=== PATIENT | female | born 1990 ===

== ENCOUNTER 2019-07-06 00:15 | Inpatient (IN) | payer OTHER ==
[2019-07-06] MEDS ORDERED: Sodium Chloride 0.9% 2.5 ML Syringe FLUSH PRN (01:31)
[2019-07-06] MEDS ORDERED: Water For Irrigation,Sterile 1,000 ML Container IRR PRN (01:31)
[2019-07-06] MEDS ORDERED: Nalbuphine 10 MG/1 ML Vial IVPUSH PRN (01:31)
[2019-07-06] MEDS ORDERED: Misoprostol 200 MCG Tab PO PRN (01:31)
[2019-07-06] MEDS ORDERED: Sodium Chloride 0.9% 10 ML SDV IV PRN (01:31)
[2019-07-06] MEDS ORDERED: Carboprost Tromethamine 250 MCG/1 ML Amp IM PRN (01:31)
[2019-07-06] MEDS ORDERED: Butorphanol 1 MG/ML SDV IVPUSH PRN (01:31)
[2019-07-06] MEDS ORDERED: Methylergonovine 0.2 MG/1 ML Amp IM PRN (01:31)
[2019-07-06] MEDS ORDERED: Lidocaine 1% 50 ML MDV INJECT PRN (01:31)
[2019-07-06] MEDS ORDERED: Sodium Chloride 0.9% 10 ML Syringe FLUSH PRN (01:31)
[2019-07-06] MEDS ORDERED: Tranexamic Acid 1,000 MG in Sodium Chloride 0.9% 100 ML IV PRN (01:31)
[2019-07-06] MEDS ORDERED: Terbutaline 1 MG/ML SDV SUBCUT PRN (01:31)
[2019-07-06] MEDS ORDERED: Oxytocin/0.9 % Sodium Chloride 30 UNIT/500 ML BAG IV SCH ×2 (01:45)
[2019-07-06] MEDS ORDERED: Lactated Ringers 1,000 ML IV SCH (01:45)
[2019-07-06] MEDS ORDERED: Bupivicaine/fentaNYL/NS 250 ML ONE (05:45)
--- NOTE | 2019-07-06 06:26 | PCM.PREANE ---
Preanesthetic Assessment - Procedure Proposed Procedure: Continuous Labor Epidural - Anesthesia/Transfusion/Family Hx Anesthesia History: Prior Anesthesia Without Reaction - Review of Systems General: No Symptoms Pulmonary: No Symptoms Cardiovascular: No Symptoms Gastrointestinal: No Symptoms Neurological: No Symptoms Other: Reports: None - Physical Assessment Height: 5 ft 9 in Weight: 125.2 kg ASA Class: 2 Mental Status: Alert & Oriented x3 Airway Class: Mallampati = 2 Dentition: Reports: Normal Dentition Thyro-Mental Finger Breadths: 3 Mouth Opening Finger Breadths: 3 ROM/Head Extension: Full Lungs: Clear to Auscultation, Normal Respiratory Effort Cardiovascular: Regular Rate, Regular Rhythm - Lab Values: Laboratory Last Values WBC 11.42 K/uL (4.0-11.0) H 07/06/19 01:45 RBC 4.41 M/uL (4.30-5.90) 07/06/19 01:45 Hgb 11.9 g/dL (12.0-16.0) L 07/06/19 01:45 Hct 37.8 % (36.0-46.0) 07/06/19 01:45 MCV 85.7 fL (80.0-98.0) 07/06/19 01:45 MCH 27.0 pg (27.0-32.0) 07/06/19 01:45 MCHC 31.5 g/dL (31.0-37.0) 07/06/19 01:45 RDW Std Deviation 41.0 fl (28.0-62.0) 07/06/19 01:45 RDW Coeff of Ramiro 13 % (11.0-15.0) 07/06/19 01:45 Plt Count 252 K/uL (150-400) 07/06/19 01:45 MPV 11.70 fL (7.40-12.00) 07/06/19 01:45 Nucleated RBC % 0.0 /100WBC 07/06/19 01:45 Nucleated RBCs # 0 K/uL 07/06/19 01:45 Blood Type A POSITIVE 07/06/19 01:45 Antibody Screen NEGATIVE 07/06/19 01:45 - Allergies Allergies/Adverse Reactions: Allergies Allergy/AdvReac Type Severity Reaction Status Date / Time strawberry Allergy Hives Verified 02/27/16 19:00 - Anesthesia Plan Free Text/Narrative:: Continuous Labor Epidural - Acknowledgements Anesthesia Type Planned: Epidural Pt an Appropriate Candidate for the Planned Anesthesia: Yes Alternatives and Risks of Anesthesia Discussed w Pt/Guardian: Yes Pt/Guardian Understands and Agrees with Anesthesia Plan: Yes PreAnesthesia Questionnaire HEENT History: Reports: None Other HEENT History: Wears glasses Cardiovascular History: Reports: None Respiratory History: Reports: None Gastrointestinal History: Reports: None Genitourinary History: Reports: None PACKAGING ENGINEER History: Reports: : 1 Para: 0 LMP (Approximate): Musculoskeletal History: Reports: None Neurological History: Reports: None Psychiatric History: Reports: Anxiety Endocrine/Metabolic History: Reports: None Hematologic History: Reports: None Immunologic History: Reports: None Oncologic (Cancer) History: Reports: None Dermatologic History: Reports: None - Infectious Disease History Infectious Disease History: Reports: Chicken Pox - Past Surgical History HEENT Surgical History: Reports: Adenoidectomy, Oral Surgery, Tonsillectomy Other HEENT Surgeries/Procedures: [place] Teeth - Past Imaging History Past Imaging History: Reports: None - History Comment History Comment: Patient taking vitamins. No other medications. - SUBSTANCE USE Smoking Status *Q: Never Smoker - HOME MEDS Home Medications: Home Meds . [No Known Home Meds] 02/27/16 [History] - CURRENT (IN HOUSE) MEDS Current Meds: Current Medications Butorphanol Tartrate (Stadol) 1 mg IVPUSH Q1H PRN PRN Reason: Pain Last Admin: 07/06/19 04:23 Dose: 1 mg Carboprost Tromethamine (Hemabate Ds) 250 mcg IM ASDIRECTED PRN PRN Reason: Post Hemorrhage Lactated Ringer's (Ringers, Lactated) 1,000 mls @ 150 mls/hr IV ASDIRECTED ZELALEM Last Admin: 07/06/19 02:05 Dose: 150 mls/hr Oxytocin/Sodium Chloride (Oxytocin 30 Unit/500 Ml-Ns) 30 unit in 500 mls @ 999 mls/hr IV TITRATE ZELALEM Oxytocin/Sodium Chloride (Oxytocin 30 Unit/500 Ml-Ns) 30 unit in 500 mls @ 2 mls/hr IV TITRATE ZELALEM; Protocol Last Titration: 07/06/19 03:20 Dose: 6 mls/hr Tranexamic Acid 1,000 mg/ (Sodium Chloride) 110 mls @ 660 mls/hr IV ONETIME PRN PRN Reason: Bleeding Lidocaine HCl (Xylocaine 1%) 50 ml INJECT ONETIME PRN PRN Reason: Laceration repair Methylergonovine Maleate (Methergine) 0.2 mg IM ASDIRECTED PRN PRN Reason: Post Hemorrhage Misoprostol (Cytotec) 200 mcg PO ONETIME PRN PRN Reason: Post Hemorrhage Nalbuphine HCl (Nubain) 10 mg IVPUSH Q1H PRN PRN Reason: Pain (severe 7-10) Sodium Chloride (Saline Flush) 10 ml FLUSH ASDIRECTED PRN PRN Reason: Keep Vein Open Sodium Chloride (Saline Flush) 2.5 ml FLUSH ASDIRECTED PRN PRN Reason: Keep Vein Open Sodium Chloride (Normal Saline) 10 ml IV ASDIRECTED PRN PRN Reason: IV Use Sterile Water (Sterile Water For Irrigation) 1,000 ml IRR ASDIRECTED PRN PRN Reason: delivery Terbutaline Sulfate (Brethine) 0.25 mg SUBCUT ASDIRECTED PRN PRN Reason: Tacysystole Discontinued Medications Fentanyl/Bupivacaine HCl (Fentanyl/Bupivacaine/Ns 2 Mcg-0.125% 250 Ml) Confirm Administered Dose 250 mls @ as directed .ROUTE .[facility] Stop: 07/06/19 05:46
[2019-07-06] MEDS ORDERED: Bisacodyl 10 MG Supp RECTAL PRN (11:11)
[2019-07-06] MEDS ORDERED: Aluminum Hydroxide/Magnesium Hydroxide/Simethicone Susp 30 ML Cup PO PRN (11:11)
[2019-07-06] MEDS ORDERED: Acetaminophen 500 MG Tab PO PRN (11:11)
[2019-07-06] MEDS ORDERED: Simethicone 80 MG Tab.Chew PO PRN (11:11)
[2019-07-06] MEDS ORDERED: Lanolin 100% Cream 7 GM Tube TOP PRN (11:11)
[2019-07-06] MEDS ORDERED: oxyCODONE 5 MG Tab PO PRN (11:11)
[2019-07-06] MEDS ORDERED: Benzocaine/Menthol 20%-0.5% Spray 78 GM Cannister TOP PRN (11:11)
[2019-07-06] MEDS ORDERED: Docusate Sodium 100 MG Cap PO PRN (11:11)
[2019-07-06] MEDS ORDERED: Ibuprofen 400 MG Tab PO PRN (11:11)
--- NOTE | 2019-07-06 11:19 | PCM.OPNOTE ---
- General Post-Op/Procedure Note Date of Surgery/Procedure: 07/06/19 Operative Procedure(s): /2nd MLL repaired Findings: Viable female APGARs 9, 9 weight pending. Spontaneous delivery intact placenta with 3V cord Pre Op Diagnosis: 40/2 week IUP. Induction of labor-elective Post-Op Diagnosis: Same Anesthesia Technique: Epidural Primary Surgeon: Abby Toledo EBL in mLs: 300 Complications: none known Condition: Good Free Text/Narrative:: Dictation [id number]
[2019-07-06] MEDS: Witch Hazel Medicated Pads 40/Jar TOP PRN (11:31)
[2019-07-06] MEDS: Ibuprofen 800 MG Tab PO PRN ×2 (11:32→22:13)
[2019-07-06] MEDS: Acetaminophen 500 MG Tab PO PRN (22:13)
[2019-07-07] MEDS: Ibuprofen 800 MG Tab PO PRN (06:03)
[2019-07-07] MEDS: Acetaminophen 500 MG Tab PO PRN (06:03)
[2019-07-07 09:11] VITALS: BP 103/73; PULSE 84
--- NOTE | 2019-07-07 11:55 | PCM.PNPP ---
- General Info Date of Service: 07/07/19 Functional Status: Reports: Pain Controlled, Tolerating Diet, Ambulating, Urinating - Review of Systems General: Denies: Fever, Weakness, Fatigue Pulmonary: Denies: Shortness of Breath Cardiovascular: Denies: Chest Pain, Palpitations, Lightheadedness Gastrointestinal: Reports: No Symptoms Genitourinary: Reports: No Symptoms Musculoskeletal: Reports: No Symptoms Skin: Reports: No Symptoms Neurological: Reports: No Symptoms Psychiatric: Reports: No Symptoms - General Info Date of Service: 07/07/19 - Patient Data Vital Signs - Most Recent: Last Vital Signs Temp 36.2 C 07/07/19 08:00 Pulse 84 07/07/19 08:00 Resp 18 07/07/19 08:00 BP 103/73 07/07/19 08:00 Pulse Ox 96 07/07/19 08:00 Weight - Most Recent: 125.2 kg Lab Results - Last 24 Hours: Laboratory Results - last 24 hr 07/07/19 Range/Units 06:48 Hgb 11.0 L (12.0-16.0) g/dL Hct 34.9 L (36.0-46.0) % Med Orders - Current: Current Medications Acetaminophen (Tylenol Extra Strength) 500 mg PO Q4H PRN PRN Reason: Pain Acetaminophen (Tylenol Extra Strength) 1,000 mg PO Q4H PRN PRN Reason: Pain Last Admin: 07/07/19 06:03 Dose: 1,000 mg Al Hydroxide/Mg Hydroxide (Mag-Al Plus) 30 ml PO Q8H PRN PRN Reason: Heartburn Benzocaine/Menthol (Dermoplast Pain Relief 20%-0.5% [place]ck[place]) 78 gm TOP ASDIRECTED PRN PRN Reason: Perineal Comfort Measure Last Admin: 07/06/19 11:30 Dose: 1 can Bisacodyl (Dulcolax) 10 mg RECTAL ONETIME PRN PRN Reason: Constipation Carboprost Tromethamine (Hemabate Ds) 250 mcg IM ASDIRECTED PRN PRN Reason: Post Hemorrhage Docusate Sodium (Colace) 100 mg PO BID PRN PRN Reason: Constipation Last Admin: 07/06/19 11:31 Dose: 100 mg Emollient Ointment (Lansinoh Hpa) 0 gm TOP ASDIRECTED PRN PRN Reason: Sore Nipples Last Admin: 07/06/19 11:31 Dose: 7 gram Lactated Ringer's (Ringers, Lactated) 1,000 mls @ 150 mls/hr IV ASDIRECTED ZELALEM Last Admin: 07/06/19 02:05 Dose: 150 mls/hr Oxytocin/Sodium Chloride (Oxytocin 30 Unit/500 Ml-Ns) 30 unit in 500 mls @ 999 mls/hr IV TITRATE ZELAL[place] Oxytocin/Sodium Chloride (Oxytocin 30 Unit/500 Ml-Ns) 30 unit in 500 mls @ 2 mls/hr IV TITRATE ZELALEM; Protocol Last Titration: 07/06/19 09:53 Dose: 6 mls/hr Tranexamic Acid 1,000 mg/ (Sodium Chloride) 110 mls @ 660 mls/hr IV ONETIME PRN PRN Reason: Bleeding Ibuprofen (Motrin) 400 mg PO Q4H PRN PRN Reason: Pain Ibuprofen (Motrin) 800 mg PO Q6H PRN PRN Reason: Pain Last Admin: 07/07/19 06:03 Dose: 800 mg Methylergonovine Maleate (Methergine) 0.2 mg IM ASDIRECTED PRN PRN Reason: Post Hemorrhage Oxycodone HCl (Oxycodone) 5 mg PO Q2H PRN PRN Reason: Pain Simethicone (Simethicone) 80 mg PO Q4H PRN PRN Reason: Gas Sodium Chloride (Saline Flush) 10 ml FLUSH ASDIRECTED PRN PRN Reason: Keep Vein Open Sodium Chloride (Saline Flush) 2.5 ml FLUSH ASDIRECTED PRN PRN Reason: Keep Vein Open Sodium Chloride (Normal Saline) 10 ml IV ASDIRECTED PRN PRN Reason: IV Use Sterile Water (Sterile Water For Irrigation) 1,000 ml IRR ASDIRECTED PRN PRN Reason: delivery Witch Mar (Tucks) 1 pad TOP ASDIRECTED PRN PRN Reason: comfort care Last Admin: 07/06/19 11:31 Dose: 1 tub Discontinued Medications Butorphanol Tartrate (Stadol) 1 mg IVPUSH Q1H PRN PRN Reason: Pain Last Admin: 07/06/19 04:23 Dose: 1 mg Fentanyl/Bupivacaine HCl (Fentanyl/Bupivacaine/Ns 2 Mcg-0.125% 250 Ml) Confirm Administered Dose 250 mls @ as directed .ROUTE .[facility]-MED ONE Stop: 07/06/19 05:46 Lidocaine HCl (Xylocaine 1%) 50 ml INJECT ONETIME PRN PRN Reason: Laceration repair Misoprostol (Cytotec) 200 mcg PO ONETIME PRN PRN Reason: Post Hemorrhage Nalbuphine HCl (Nubain) 10 mg IVPUSH Q1H PRN PRN Reason: Pain (severe 7-10) Terbutaline Sulfate (Brethine) 0.25 mg SUBCUT ASDIRECTED PRN PRN Reason: Tacysystole - Infant Interaction Support Person: - Recovery Exam Fundal Tone: Firm Fundal Level: 1 Fingerbreadths Below Umbilicus Fundal Placement: Midline Lochia Amount: Scant, Small Lochia Color: Rubra/Red Perineum Description: Intact, Minimal Bruising/Swelling Bladder Status: Voiding Urinary Elimination: Voided - Exam General: Alert, Oriented Lungs: Normal Respiratory Effort Cardiovascular: Regular Rate, Regular Rhythm GI/Abdominal Exam: Normal Bowel Sounds, Soft Extremities: Pedal Edema (trace). No: Alexus's Sign Skin: Warm, Dry, Intact Wound/Incisions: Healing Well Neurological: No New Focal Deficit Psy/Mental Status: Alert, Normal Affect, Normal Mood - Problem List & Annotations (1) Vaginal delivery SNOMED Code(s): 820293670 Code(s): O80 - ENCOUNTER FOR FULL-TERM UNCOMPLICATED DELIVERY Status: Acute Current Visit: Yes - Problem List Review Problem List Initiated/Reviewed/Updated: Yes - My Orders Last 24 Hours: My Active Orders 07/06/19 11:11 Patient Status [ADT] Routine May Shower [RC] ASDIRECTED Notify Provider Vital Signs [RC] ASDIRECTED Up ad Shital [RC] ASDIRECTED Vital Signs [RC] PER UNIT ROUTINE Acetaminophen [Tylenol Extra Strength] 1,000 mg PO Q4H PRN Acetaminophen [Tylenol Extra Strength] 500 mg PO Q4H PRN Alum Hydrox/Mag Hydrox/Simeth [Mag-Al Plus] 30 ml PO Q8H PRN Benzocaine/Menthol [Dermoplast Pain Relief 20%-0.5% [place]ley] 78 gm TOP ASDIRECTED PRN Docusate Sodium [Colace] 100 mg PO BID PRN Ibuprofen [Motrin] 400 mg PO Q4H PRN Ibuprofen [Motrin] 800 mg PO Q6H PRN Lanolin [Lansinoh HPA] See Dose Instructions TOP ASDIRECTED PRN Simethicone 80 mg PO Q4H PRN bisacodyL [Dulcolax] 10 mg RECTAL ONETIME PRN oxyCODONE 5 mg PO Q2H PRN witch Mar [Tucks] 1 pad TOP ASDIRECTED PRN Assess Lochia [WOMSER] Per Unit Routine Assess Uterine Involution [WOMSER] Per Unit Routine Peripheral IV Discontinue [OM.PC] Routine 07/06/19 11:12 Ice Therapy [OM.PC] Per Unit Routine Perineal Care [OM.PC] Per Unit Routine Sitz Bath [OM.PC] Per Unit Routine 07/06/19 Lunch Regular Diet [DIET] 07/07/19 11:53 Ready for Discharge [RC] PER UNIT ROUTINE - Assessment Assessment:: PPD 1 status post /2nd MLL repaired - Plan Plan:: VS and labs are reassuring. Patient would like to go home today. Discharge instructions reviewed. Follow up at [facility] 6 weeks. Infetion and bleeding warnings reviewed. Discharge to home today.
--- NOTE | 2019-07-07 12:02 | PCM48HPAN ---
Post Anesthesia Note - EVALUATION WITHIN 48HRS OF ANESTHETIC Vital Signs in Normal Range: Yes Patient Participated in Evaluation: Yes Respiratory Function Stable: Yes Airway Patent: Yes Cardiovascular Function Stable: Yes Hydration Status Stable: Yes Pain Control Satisfactory: Yes Nausea and Vomiting Control Satisfactory: Yes Mental Status Recovered: Yes Vital Signs: Last Vital Signs Temp 36.2 C 07/07/19 08:00 Pulse 84 07/07/19 08:00 Resp 18 07/07/19 08:00 BP 103/73 07/07/19 08:00 Pulse Ox 96 07/07/19 08:00 - COMMENTS/OBSERVATIONS Free Text/Narrative:: Patient sitting in bed holding baby doing well. No anesthesia complications or concerns noted.
[2019-07-07] MEDS: Witch Hazel Medicated Pads 40/Jar TOP PRN (12:22)
--- NOTE | 2019-07-08 08:35 | OR ---
SURGEON: Abby Toledo M.D. DATE OF PROCEDURE: 07/06/2019 PREOPERATIVE DIAGNOSES: 1. 40 and 2 weeks' intrauterine . 2. Induction of labor, elective. POSTOPERATIVE DIAGNOSES: 1. 40 and 2 weeks' intrauterine . 2. Induction of labor, elective. PROCEDURES: Spontaneous vaginal delivery and second-degree midline laceration repaired. ANESTHESIA: Epidural. ESTIMATED BLOOD LOSS: 300 mL. COMPLICATIONS: None known. FINDINGS: Viable female. scores 9 at one minute and 9 at five minutes. Weight is pending. Spontaneous delivery, intact placenta, 3-vessel cord. DISPOSITION: to nursery and mom in LDRP. PROCEDURE DETAIL: Rashmi is a 29-year-old; G1, P0, at 40 and 2 weeks' gestation, admitted on the early childhood education coordinator of 07/06/2019, for a scheduled elective induction of labor. She presented approximately midnight, underwent Pitocin induction after reactive NST was obtained. She responded nicely to this. She was already 2 to 3 cm dilated and had spontaneous rupture of membranes. Clear fluid was noted. She is group B strep negative. She became increasingly uncomfortable and underwent anesthesia in the form of epidural, became more comfortable. She continued to progress nicely and shortly after 7 a.m. was found to be complete, 100% effaced, plus 1 station and began pushing efforts, and pushed readily to a plus 3 station. I was called for delivery. Upon my arrival, the patient was placed in modified dorsal lithotomy position, was prepped and draped in the usual aseptic manner. She continued with pushing efforts and was able to deliver infant's head atraumatically spontaneously, followed by anterior shoulder, posterior shoulder, and remainder of the body without difficulty. The 's oropharynx and nares were bulb suctioned. Infant was handed off to the mother with attending nursing staff at the side. After a delay, cord was clamped x2 and cut. Cord arterial, cord venous, and cord blood sampling obtained. Light pressure was applied. The placenta was delivered spontaneously intact. Vigorous fundal uterine massage was then applied while 30 units of Pitocin was delivered in 500 mL of IV fluid. Upon inspection of cervix, vaginal sidewalls and perineum, there was found to be a second-degree midline laceration, repaired using 3-0 Vicryl in the usual fashion. There were also 2 bilateral labial lacerations, first degree, that were reapproximated using 3-0 Vicryl with figure- of-eight sutures. Hemostasis remained evident. Uterus remained firm. Sponge, instrument, and needle counts were correct x2. The patient tolerated the procedure well. She will remain in LDRP and infant to nursery. KIRAN / RADHA /[id number]
== END 2019-07-07 13:32 | disposition home or self-care (01) | DRG 807 ==
LOC: MW.OBCHECK 00:15 → MW.OB 00:16 → OBSVTOIN 10:37 → MW.OB 15:47
PROVIDERS: ADMIT Obstetrics & Gynecology; ATTEND Obstetrics & Gynecology
PROC: 10E0XZZ Delivery of Products of Conception, External Approach (ICD-10-PCS; principal; 2019-07-06)
PROC: 0KQM0ZZ Repair Perineum Muscle, Open Approach (ICD-10-PCS; 2019-07-06)
PROC: 3E0R3BZ Introduction of Anesthetic Agent into Spinal Canal, Percutaneous Approach (ICD-10-PCS; 2019-07-06)
DX: O48.0 Post-term pregnancy (principal); Z37.0 Single live birth; Z3A.40 40 weeks gestation of pregnancy; O70.1 Second degree perineal laceration during delivery
CPT/HCPCS: 36415; 51702; 59025; 59409; 82803; 85014; 85018; 85027; 86592; 86593; 86850; 86900; 86901; A9270-GY; J0595; J2590; J3010; J7120

== ENCOUNTER 2020-09-04 15:29 | Emergency (ER) | payer OTHER ==
[2020-09-04] MEDS ORDERED: Sodium Chloride 0.9% 10 ML Syringe FLUSH PRN (15:44)
[2020-09-04] MEDS ORDERED: Sodium Chloride 0.9% 2.5 ML Syringe FLUSH PRN (15:44)
[2020-09-04] MEDS ORDERED: Sodium Chloride 0.9% 1,000 ML IV ONE (15:47)
--- NOTE | 2020-09-04 16:27 | EDM.PDOC ---
ED HPI GENERAL MEDICAL PROBLEM - General Chief Complaint: Respiratory Problem Stated Complaint: SOB Time Seen by Provider: 09/04/20 15:30 - History of Present Illness INITIAL COMMENTS - FREE TEXT/NARRATIVE: HISTORY AND PHYSICAL: History of present illness: This is a 30-year-old female who is 2 para 1 and is currently 39 weeks by ultrasound who presents ER today with concerns for coronavirus infection. Patient reports that she has had some increased shortness of breath, nonproductive cough, loss of smell x2 days. 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 Patient reports she has not had the coronavirus vaccination. Patient reports that she lives with her child and and neither of them have coronavirus symptoms. Patient denies any recent fevers, shakes, chills. Patient denies any nausea, vomiting, diarrhea. Patient reports she has abdominal cramping similar to her prior with early contractions. Patient reports that her contractions are approximately 10 to 15 minutes apart. Patient denies any calf tenderness or swelling. Patient reports that she does have a significant family history for PE/DVTs on her father side but always over the age of 50. She reports no diagnoses of bleeding/clotting disorders. Patient denies any vaginal discharge, vaginal bleeding, or fluid leakage. Review of systems: As per history of present illness and below otherwise all systems reviewed and negative. Past medical history: As per history of present illness and as reviewed below otherwise noncontributory. Surgical history: As per history of present illness and as reviewed below otherwise noncontributory. Social history: No reported history of drug abuse. Family history: As per history of present illness and as reviewed below otherwise noncontributory. Physical exam: This patient was seen and evaluated during the 2019 SARS-CoV-2 novel coronavirus pandemic period. Community viral transmission is ongoing at [facility] of [facility] and the emergency department is operating under pandemic response procedures. Constitutional: Patient is oriented to person, place, and time. Appears well- developed and well-nourished. No distress. HEENT: Moist mucous membranes Head: Normocephalic and atraumatic Eyes: Right eye exhibits no discharge. Left eye exhibits no discharge. No scleral icterus Neck: Normal range of motion. No tracheal deviation present. Cardiovascular: Normal rate and regular rhythm. Pulmonary: Effort normal, no respiratory distress. No wheezing rales or rhonchi Abdominal: No distention, gravid abdomen, nontender to palpation Musculoskeletal: Normal range of motion Neurologic: Alert and oriented to person, place and time. Skin: [place], warm and dry. Psychiatric: Normal mood and affect. Behavior is normal. Judgment and thought content normal. Nursing note and vital signs have been reviewed Diagnostics: CBC, CMP, Covid Therapeutics: heart monitoring by OB Assessment and plan: This is a 30-year-old female who presents ER today with signs symptoms that are consistent with possible Covid infection. Patient will have a Covid test here as well as basic labs and will be reassessed. While in the ED, the patient will have heart monitoring performed. Patient was refused on the OB floor secondary to concerns about coronavirus infection and the high risk population on that unit so she will be evaluated in the ED with the assistance with the OB service. 5:30 PM: Patient's labs are all within normal limits. Patient's coronavirus test is positive. Patient is currently still having heart monitoring with the OB service and awaiting clearance. At this time, patient does not meet criteria for inpatient level of care for treatment of coronavirus. Patient's vital signs are all normal. Patient's pulse ox is 99%. Patient's respiratory is 18/min. I have discussed with the patient the risks of coronavirus during and the need to return to the ER if she has worsening shortness of breath. She has also been instructed to notify her OB doctor regarding her positive coronavirus test so they can make accommodations for her and her during delivery. Reassessment at the time of disposition demonstrates that the patient is in no acute distress. The patient has remained stable throughout the entire ED visit and is without objective evidence for acute process requiring urgent intervention or hospitalization. The patient is stable for discharge, counseling is provided as documented above, discussed symptomatic treatment and specific conditions for return. I have spoken with the patient/caregiver and discussed todays findings, in addition to providing specific details for the plan of care. Questions are answered and there is agreement with the plan. Definitive disposition and diagnosis as appropriate pending reevaluation and review of above. Abdominal Pain Score (Numeric/FACES): 4 - Related Data Allergies Allergy/AdvReac Type Severity Reaction Status Date / Time strawberry Allergy Hives Verified 09/04/20 15:42 Home Meds: Home Meds . 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: Musculoskeletal History: Reports: None Neurological History: Reports: None Psychiatric History: Reports: Anxiety Endocrine/Metabolic History: Reports: None Hematologic History: Reports: None Immunologic History: Reports: None Oncologic (Cancer) History: Reports: None Dermatologic History: Reports: None - Infectious Disease History Infectious Disease History: Reports: Chicken Pox - Past Surgical History HEENT Surgical History: Reports: Adenoidectomy, Oral Surgery, Tonsillectomy Other HEENT Surgeries/Procedures: [place] Teeth - Past Imaging History Past Imaging History: Reports: None - History Comment History Comment: Patient taking vitamins. No other medications. Social & Family History - Family History Family Medical History: No Pertinent Family History - Tobacco Use Tobacco Use Status *Q: Never Tobacco User - Caffeine Use Caffeine Use: Reports: None - Recreational Drug Use Recreational Drug Use: No ED ROS GENERAL - Review of Systems Review Of Systems: See Below ED EXAM, GENERAL - Physical Exam Exam: See Below #1 Interpretation EKG Interpretation Comments: EKG: As interpreted by ER physician: Brooke: Nonspecific ST-T wave abnormalities Normal axis No evidence of ST elevation MD Normal sinus rhythm heart rate of 99 Course - Vital Signs Last Recorded V/S: Last Vital Signs Temp 97.6 F 09/04/20 15:42 Pulse 94 09/04/20 18:25 Resp 17 09/04/20 16:57 BP 121/80 09/04/20 18:25 Pulse Ox 96 09/04/20 18:25 - Orders/Labs/Meds Orders: Active Orders 24 hr Category Date Time Status Saline Lock Insert [OM.PC] Stat Oth 09/04/20 15:45 Ordered Labs: Laboratory Tests 09/04/20 09/04/20 09/04/20 Range/Units 15:55 15:55 15:56 WBC 8.05 (4.0-11.0) K/uL RBC 4.37 (4.30-5.90) M/uL Hgb 11.5 L (12.0-16.0) g/dL Hct 36.2 (36.0-46.0) % MCV 82.8 (80.0-98.0) fL MCH 26.3 L (27.0-32.0) pg MCHC 31.8 (31.0-37.0) g/dL RDW Std Deviation 40.5 (28.0-62.0) fl RDW Coeff of Ramiro 13 (11.0-15.0) % Plt Count 242 (150-400) K/uL MPV 11.40 (7.40-12.00) fL Neut % (Auto) 66.2 (48.0-80.0) % Lymph % (Auto) 24.3 (16.0-40.0) % [place] % (Auto) 8.2 (0.0-15.0) % Eos % (Auto) 1.1 (0.0-7.0) % Baso % (Auto) 0.2 (0.0-1.5) % Neut # (Auto) 5.3 (1.4-5.7) K/uL Lymph # (Auto) 2.0 (0.6-2.4) K/uL [place] # (Auto) 0.7 (0.0-0.8) K/uL Eos # (Auto) 0.1 (0.0-0.7) K/uL Baso # (Auto) 0.0 (0.0-0.1) K/uL Nucleated RBC % 0.0 /100WBC Nucleated RBCs # 0 K/uL Sodium 136 (136-145) mmol/L Potassium 3.4 L (3.5-5.1) mmol/L Chloride 103 (98-107) mmol/L Carbon Dioxide 21.1 (21.0-32.0) mmol/L BUN 8 (7.0-18.0) mg/dL Creatinine 0.8 (0.6-1.0) mg/dL Est Cr Clr Drug Dosing 108.44 mL/min Estimated GFR (MDRD) > 60.0 ml/min Glucose 93 (74-106) mg/dL Calcium 8.5 (8.5-10.1) mg/dL Total Bilirubin 0.2 (0.2-1.0) mg/dL AST 16 (15-37) IU/L ALT 13 L (14-63) IU/L Alkaline Phosphatase 197 H (46-116) U/L Total Protein 6.8 (6.4-8.2) g/dL Albumin 2.4 L (3.4-5.0) g/dL Globulin 4.4 H (2.6-4.0) g/dL Albumin/Globulin Ratio 0.6 L (0.9-1.6) Urine Color Urine Appearance Urine pH (5.0-8.0) Ur Specific Tolar (1.001-1.035) Urine Protein (NEGATIVE) mg/dL Urine Glucose (UA) (NEGATIVE) mg/dL Urine Ketones (NEGATIVE) mg/dL Urine Occult Blood (NEGATIVE) Urine Nitrite (NEGATIVE) Urine Bilirubin (NEGATIVE) Urine Urobilinogen (<2.0) EU/dL Ur Leukocyte Esterase (NEGATIVE) SARS-CoV-2 RNA (GATO) POSITIVE H (NEGATIVE) 09/04/20 Range/Units 18:01 WBC (4.0-11.0) K/uL RBC (4.30-5.90) M/uL Hgb (12.0-16.0) g/dL Hct (36.0-46.0) % MCV (80.0-98.0) fL MCH (27.0-32.0) pg MCHC (31.0-37.0) g/dL RDW Std Deviation (28.0-62.0) fl RDW Coeff of Ramiro (11.0-15.0) % Plt Count (150-400) K/uL MPV (7.40-12.00) fL Neut % (Auto) (48.0-80.0) % Lymph % (Auto) (16.0-40.0) % [place] % (Auto) (0.0-15.0) % Eos % (Auto) (0.0-7.0) % Baso % (Auto) (0.0-1.5) % Neut # (Auto) (1.4-5.7) K/uL Lymph # (Auto) (0.6-2.4) K/uL [place] # (Auto) (0.0-0.8) K/uL Eos # (Auto) (0.0-0.7) K/uL Baso # (Auto) (0.0-0.1) K/uL Nucleated RBC % /100WBC Nucleated RBCs # K/uL Sodium (136-145) mmol/L Potassium (3.5-5.1) mmol/L Chloride (98-107) mmol/L Carbon Dioxide (21.0-32.0) mmol/L BUN (7.0-18.0) mg/dL Creatinine (0.6-1.0) mg/dL Est Cr Clr Drug Dosing mL/min Estimated GFR (MDRD) ml/min Glucose (74-106) mg/dL Calcium (8.5-10.1) mg/dL Total Bilirubin (0.2-1.0) mg/dL AST (15-37) IU/L ALT (14-63) IU/L Alkaline Phosphatase (46-116) U/L Total Protein (6.4-8.2) g/dL Albumin (3.4-5.0) g/dL Globulin (2.6-4.0) g/dL Albumin/Globulin Ratio (0.9-1.6) Urine Color YELLOW Urine Appearance CLEAR Urine pH 6.5 (5.0-8.0) Ur Specific T[place] <= 1.005 (1.001-1.035) Urine Protein NEGATIVE (NEGATIVE) mg/dL Urine Glucose (UA) NEGATIVE (NEGATIVE) mg/dL Urine Ketones NEGATIVE (NEGATIVE) mg/dL Urine Occult Blood NEGATIVE (NEGATIVE) Urine Nitrite NEGATIVE (NEGATIVE) Urine Bilirubin NEGATIVE (NEGATIVE) Urine Urobilinogen 0.2 (<2.0) EU/dL Ur Leukocyte Esterase NEGATIVE (NEGATIVE) SARS-CoV-2 RNA (GATO) (NEGATIVE) Meds: Medications Discontinued Medications Generic Name Dose Route Start Last Admin Trade Name Freq PRN Reason Stop Dose Admin Sodium Chloride 1,000 mls @ 999 mls/hr 09/04/20 15:47 09/04/20 17:02 Normal Saline IV 09/04/20 16:47 999 mls/hr .Bolus ONE Administration Sodium Chloride 10 ml 09/04/20 15:44 Sodium Chloride 0.9% 10 Ml Syringe FLUSH ASDIRECTED PRN Keep Vein Open Sodium Chloride 2.5 ml 09/04/20 15:44 Sodium Chloride 0.9% 2.5 Ml Syringe FLUSH ASDIRECTED PRN Keep Vein Open Departure - Departure Time of Disposition: 17:00 Disposition: Home, Self-Care 01 Clinical Impression: Third trimester , COVID-19 affecting in third trimester, COVID-19 virus infection - Discharge Information Instructions: Third Trimester of , [id number], and COVID- 19, 10 Things You Can Do to Manage Your COVID-19 Symptoms at Home - CDC, COVID- 19: Quarantine vs. Isolation - [facility] Referrals: Abby Toledo MD [Primary Care Provider] - Forms: ED Department Discharge Additional Instructions: You were seen and evaluated in the ER today secondary to cough, loss of taste and smell, and shortness of breath. Your coronavirus test today was positive. Please make sure that you notify your back order clerk about the test results that they can make accommodations for you and your infant during your delivery. You will need to stay home and quarantine to avoid possibly transmitting your infection to others. 1. Your COVID-19 screening is positive. That means you do have the coronavirus and you are considered contagious. Your vital signs and oxygen saturation are well enough that you were able to monitor your symptoms at home. Continue to monitor for trouble breathing, new confusion or inability to arouse, bluish lips or face or any of the other symptoms we discussed -if this occurs please return to the emergency room. 2. Please self quarantine over the next 10 days. Inform any persons that you have been in contact with since you started becoming symptomatic that you have tested positive; they should be made aware and take the appropriate steps as needed. 3. You can take NyQuil during the evening to help get a restful night sleep. May alternate Tylenol and ibuprofen as needed for pain and fever management. 4. The [facility] department will be calling you and following up with you. The [place] COVID 19 Hotline phone number , They are open Monday - Monday 7am - 7pm. Follow up with your primary care provider for re-evaluation and re-testing after the 10 day quarantine and discuss when you should be seen. The following information is given to patients seen in the emergency department who are being discharged to home. This information is to outline your options for follow-up care. We provide all patients seen in our emergency department w ith a follow-up referral. The need for follow-up, as well as the timing and circumstances, are variable depending upon the specifics of your emergency department visit. If you don't have a primary care physician on staff, we will provide you with a referral. We always advise you to contact your personal physician following an emergency department visit to inform them of the circumstance of the visit and for follow-up with them and/or the need for any referrals to a consulting specialist. The emergency department will also refer you to a specialist when appropriate. This referral assures that you have the opportunity for follow-up care with a specialist. All of these measure are taken in an effort to provide you with optimal care, which includes your follow-up. Under all circumstances we always encourage you to contact your private physician who remains a resource for coordinating your care. When calling for follow-up care, please make the office aware that this follow-up is from your recent emergency room visit. If for any reason you are refused follow-up, please contact the [facility] Emergency Department at and asked to speak to the emergency department charge nurse. [facility] - Primary Care [address] [place] [id number] [id number] Sepsis Event Note (ED) - Evaluation Sepsis Screening Result: No Definite Risk - My Orders Last 24 Hours: My Active Orders 09/04/20 15:45 Saline Lock Insert [OM.PC] Stat - Assessment/Plan Last 24 Hours: My Active Orders 09/04/20 15:45 Saline Lock Insert [OM.PC] Stat
[2020-09-04 16:55] LABS: BLOOD UREA NITROGEN,BUN 8 mg/dL (7.0-18.0); CARBON DIOXIDE,CO2 21.1 mmol/L (21.0-32.0); CHLORIDE,CL 103 mmol/L (98-107); GLUCOSE RANDOM 93 mg/dL (74-106); POTASSIUM,K 3.4 mmol/L (3.5-5.1); SODIUM,NA 136 mmol/L (136-145)
[2020-09-04 18:31] VITALS: BP 121/80; PULSE 94
== END 2020-09-04 18:27 | disposition home or self-care (01) ==
LOC: MW.ED 15:29
DX: O98.513 Other viral diseases complicating pregnancy, third trimester (principal); U07.1 COVID-19; Z91.018 Allergy to other foods; Z3A.39 39 weeks gestation of pregnancy
CPT/HCPCS: 36415; 80053; 81003; 85025; 87635; 99285; J7030; 93010; 99284; U0002

== ENCOUNTER 2020-09-16 13:22 | Inpatient (IN) | payer OTHER ==
[2020-09-16] MEDS ORDERED: Misoprostol 200 MCG Tab PO PRN (14:14)
[2020-09-16] MEDS ORDERED: Carboprost Tromethamine 250 MCG/1 ML Amp IM PRN (14:14)
[2020-09-16] MEDS ORDERED: Butorphanol 1 MG/ML SDV IVPUSH PRN (14:14)
[2020-09-16] MEDS ORDERED: Lidocaine 1% 50 ML MDV INJECT PRN (14:14)
[2020-09-16] MEDS ORDERED: Sodium Chloride 0.9% 10 ML SDV IV PRN (14:14)
[2020-09-16] MEDS ORDERED: Tranexamic Acid 1,000 MG in Sodium Chloride 0.9% 100 ML IV PRN (14:14)
[2020-09-16] MEDS ORDERED: Water For Irrigation,Sterile 1,000 ML Container IRR PRN (14:14)
[2020-09-16] MEDS ORDERED: Methylergonovine 0.2 MG/1 ML Amp IM PRN (14:14)
[2020-09-16] MEDS ORDERED: Nalbuphine 10 MG/1 ML Vial IVPUSH PRN (14:14)
[2020-09-16] MEDS ORDERED: Sodium Chloride 0.9% 2.5 ML Syringe FLUSH PRN (14:14)
[2020-09-16] MEDS ORDERED: Sodium Chloride 0.9% 10 ML Syringe FLUSH PRN (14:14)
[2020-09-16] MEDS ORDERED: Oxytocin/0.9 % Sodium Chloride 30 UNIT/500 ML BAG IV SCH (14:15)
[2020-09-16] MEDS: Lactated Ringers 1,000 ML IV SCH ×2 (14:30→15:21)
[2020-09-16] MEDS ORDERED: fentaNYL 100 MCG/2 ML SDV ONE ×2 (14:47→16:09)
[2020-09-16] MEDS ORDERED: Ropivacaine HCl/PF 200 ML ONE (14:47)
--- NOTE | 2020-09-16 15:46 | PCM.PREANE ---
Preanesthetic Assessment - Anesthesia/Transfusion/Family Hx Anesthesia History: Prior Anesthesia Without Reaction Family History of Anesthesia Reaction: No - Physical Assessment NPO Status Date: 09/16/20 NPO Status Time: 11:00 ASA Class: 2 - Lab Values: Laboratory Last Values WBC 10.72 K/uL (4.0-11.0) 09/16/20 14:10 RBC 4.52 M/uL (4.30-5.90) 09/16/20 14:10 Hgb 11.8 g/dL (12.0-16.0) L 09/16/20 14:10 Hct 37.0 % (36.0-46.0) 09/16/20 14:10 MCV 81.9 fL (80.0-98.0) 09/16/20 14:10 MCH 26.1 pg (27.0-32.0) L 09/16/20 14:10 MCHC 31.9 g/dL (31.0-37.0) 09/16/20 14:10 RDW Std Deviation 41.4 fl (28.0-62.0) 09/16/20 14:10 RDW Coeff of Ramiro 14 % (11.0-15.0) 09/16/20 14:10 Plt Count 285 K/uL (150-400) 09/16/20 14:10 MPV 11.30 fL (7.40-12.00) 09/16/20 14:10 Nucleated RBC % 0.0 /100WBC 09/16/20 14:10 Nucleated RBCs # 0 K/uL 09/16/20 14:10 - Allergies Allergies/Adverse Reactions: Allergies Allergy/AdvReac Type Severity Reaction Status Date / Time strawberry Allergy Hives Verified 09/04/20 15:42 - Acknowledgements Anesthesia Type Planned: Epidural Pt an Appropriate Candidate for the Planned Anesthesia: Yes Alternatives and Risks of Anesthesia Discussed w Pt/Guardian: Yes Pt/Guardian Understands and Agrees with Anesthesia Plan: Yes PreAnesthesia Questionnaire HEENT History: Reports: None Other HEENT History: Wears glasses Cardiovascular History: Reports: None Respiratory History: Reports: None Gastrointestinal History: Reports: None Genitourinary History: Reports: None 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: Musculoskeletal History: Reports: None Neurological History: Reports: None Psychiatric History: Reports: Anxiety Endocrine/Metabolic History: Reports: None Hematologic History: Reports: None Immunologic History: Reports: None Oncologic (Cancer) History: Reports: None Dermatologic History: Reports: None - Infectious Disease History Infectious Disease History: Reports: Chicken Pox - Past Surgical History HEENT Surgical History: Reports: Adenoidectomy, Oral Surgery, Tonsillectomy Other HEENT Surgeries/Procedures: [place] Teeth - Past Imaging History Past Imaging History: Reports: None - History Comment History Comment: Patient taking vitamins. No other medications. - HOME MEDS Home Medications: Home Meds . [No Known Home Meds] 02/27/16 [History] - CURRENT (IN HOUSE) MEDS Current Meds: Current Medications Butorphanol Tartrate (Butorphanol 1 Mg/Ml Sdv) 1 mg IVPUSH Q1H PRN PRN Reason: Pain (severe 7-10) Carboprost Tromethamine (Carboprost Tromethamine 250 Mcg/1 Ml Amp) 250 mcg IM ASDIRECTED PRN PRN Reason: Post Hemorrhage Oxytocin/Sodium Chloride (Oxytocin 30 Unit/500 Ml-Ns) 30 unit in 500 mls @ 999 mls/hr IV TITRATE [facility] Tranexamic Acid 1,000 mg/ (Sodium Chloride) 110 mls @ 660 mls/hr IV ONETIME PRN PRN Reason: Bleeding Lactated Ringer's (Ringers, Lactated) 1,000 mls @ 150 mls/hr IV ASDIRECTED [facility] Last Admin: 09/16/20 15:21 Dose: 150 mls/hr Documented by: Lidocaine HCl (Lidocaine 1% 50 Ml Mdv) 50 ml INJECT ONETIME PRN PRN Reason: Laceration repair Methylergonovine Maleate (Methylergonovine 0.2 Mg/1 Ml Amp) 0.2 mg IM ASDIRECTED PRN PRN Reason: Post Hemorrhage Misoprostol (Misoprostol 200 Mcg Tab) 200 mcg PO ONETIME PRN PRN Reason: Post Hemorrhage Nalbuphine HCl (Nalbuphine 10 Mg/1 Ml Vial) 10 mg IVPUSH Q1H PRN PRN Reason: Pain (severe 7-10) Sodium Chloride (Sodium Chloride 0.9% 10 Ml Syringe) 10 ml FLUSH ASDIRECTED PRN PRN Reason: Keep Vein Open Sodium Chloride (Sodium Chloride 0.9% 2.5 Ml Syringe) 2.5 ml FLUSH ASDIRECTED PRN PRN Reason: Keep Vein Open Sodium Chloride (Sodium Chloride 0.9% 10 Ml Sdv) 10 ml IV ASDIRECTED PRN PRN Reason: IV Use Sterile Water (Water For Irrigation,Sterile 1,000 Ml Container) 1,000 ml IRR ASDIRECTED PRN PRN Reason: delivery Discontinued Medications Fentanyl (Fentanyl 100 Mcg/2 Ml Sdv) Confirm Administered Dose 200 mcg .ROUTE .STK-MED ONE Stop: 09/16/20 14:48 Ropivacaine (Naropin 0.2%) Confirm Administered Dose 200 mls @ as directed .ROUTE .STK-MED ONE Stop: 09/16/20 14:48
--- NOTE | 2020-09-16 15:50 | PCM.PRNOTE ---
- Free Text/Narrative Note: Anes NOte Patient requests epidural for L&D. Sitting position, level L3-L4 midline approach. Sterile technique. Chloraprep scrub to lumbar area. Sterile fenestrated drape applied. Epidural space achieved second attempt with some repositioning and redirection of needle. BOBBY at 5 cm. Cath threaded 6 cm with ease. Site dressed with clear adhesive dressing and medipore tape. 1510 Test 3 cc 1.5% lido with epi negative. 1512 Load 10 cc 0.2% ropivicaine with 1 mcg/cc fentanyl in slow divided doses 1518 Pump started with 190 cc same solution. Rate is 8 cc hr with 6 cc q 20 min prn bolus. Ryland well. Time with patient [id number] Gordon Perdomo CRNA
[2020-09-16] MEDS ORDERED: Lidocaine 2% with EPINEPHrine 1:200,000 20 ML SDV ONE (16:09)
--- NOTE | 2020-09-16 16:18 | PCM.PRNOTE ---
- Free Text/Narrative Note: Anes Note Patient requests additional analgesia for perineal discomfort. She is 9 plus cm dilated. A sitting does of 100 mcg fentanyl plus 6 cc 2% lido with epi was administered. Time with patient [id number] Gordon Perdomo CRNA
[2020-09-16] MEDS ORDERED: Witch Hazel Medicated Pads 40/Jar TOP PRN (17:52)
[2020-09-16] MEDS ORDERED: Docusate Sodium 100 MG Cap PO PRN (17:52)
[2020-09-16] MEDS ORDERED: Benzocaine/Menthol 20%-0.5% Spray 78 GM Cannister TOP PRN (17:52)
[2020-09-16] MEDS ORDERED: Ibuprofen 400 MG Tab PO PRN (17:52)
[2020-09-16] MEDS ORDERED: oxyCODONE 5 MG Tab PO PRN (17:52)
[2020-09-16] MEDS ORDERED: Bisacodyl 10 MG Supp RECTAL PRN (17:52)
[2020-09-16] MEDS ORDERED: Lanolin 100% Cream 7 GM Tube TOP PRN (17:52)
[2020-09-16] MEDS ORDERED: Acetaminophen 500 MG Tab PO PRN (17:52)
[2020-09-16] MEDS: Acetaminophen 500 MG Tab PO PRN (18:20)
[2020-09-16] MEDS: Ibuprofen 800 MG Tab PO PRN (18:20)
--- NOTE | 2020-09-16 21:45 | PCM.HP.2 ---
H&P History of Present Illness - General Date of Service: 09/16/20 Admit Problem/Dx: Admission Diagnosis/Problem Admission Diagnosis/Problem Early Labor Source of Information: Patient History Limitations: Reports: No Limitations - History of Present Illness Initial Comments - Free Text/Narative: H & P 30 yo @ 40w0d ( d,9) complaining of contractions. She denies leakage of fluid , vaginal bleeding and reports movement [facility]@ [facility] from 10 weeks PNL: A positive , Rubella Immune , RPR negative , Hep B negative , GBS negative Predicted EFW_ 3500g Exam: General: NAD Chest: CTA BL CVS: S1 S2 no murmurs Abdomen: Gravid , EFW 3500g VE: 5/50/-2 EFM: 130s , moderate variability , accels , no decels Lolita: q 2-3 mins VSS: 114/68, HR: 104 A/P 30yo @ 40w0d admitted in early labor , GBS negative Plan NPO IVF EFM/TOCO/VSS Pain control [place] Reassess in 2-3hrs Abdominal Pain Score (Numeric/FACES): 10 - Related Data Allergies/Adverse Reactions: Allergies Allergy/AdvReac Type Severity Reaction Status Date / Time strawberry Allergy Hives Verified 09/04/20 15:42 Home Medications: Home Meds Pnv No.95/Ferrous Fum/Folic AC [ Multivitamin Tablet] 1 each PO 09/16/20 [History] Past Medical History HEENT History: Reports: None Other HEENT History: Wears glasses Cardiovascular History: Reports: None Respiratory History: Reports: None Gastrointestinal History: Reports: None Genitourinary History: Reports: None [employer] History: Reports: Musculoskeletal History: Reports: None Neurological History: Reports: None Psychiatric History: Reports: Anxiety, PTSD Endocrine/Metabolic History: Reports: None Hematologic History: Reports: None Immunologic History: Reports: None Oncologic (Cancer) History: Reports: None Dermatologic History: Reports: None - Infectious Disease History Infectious Disease History: Reports: Chicken Pox - Past Surgical History HEENT Surgical History: Reports: Adenoidectomy, Oral Surgery, Tonsillectomy Other HEENT Surgeries/Procedures: [place] Teeth - Past Imaging History Past Imaging History: Reports: None - History Comment History Comment: Patient taking vitamins. No other medications. Social & Family History - Family History Family Medical History: No Pertinent Family History - Caffeine Use Caffeine Use: Reports: None H&P Review of Systems - Review of Systems: Review Of Systems: See Below General: Reports: No Symptoms HEENT: Reports: No Symptoms Pulmonary: Reports: No Symptoms Cardiovascular: Reports: No Symptoms Gastrointestinal: Reports: No Symptoms Genitourinary: Reports: No Symptoms Musculoskeletal: Reports: No Symptoms Skin: Reports: No Symptoms Psychiatric: Reports: No Symptoms Neurological: Reports: No Symptoms Exam - Exam Exam: See Below - Vital Signs Vital Signs: Last Vital Signs Temp 36.4 C 09/16/20 21:08 Pulse 85 09/16/20 21:08 Resp 14 09/16/20 21:08 BP 116/67 09/16/20 21:08 Pulse Ox 97 09/16/20 21:08 Weight: 120.202 kg - Exam General: Alert - Patient Data Lab Results Last 24 hrs: Laboratory Results - last 24 hr 09/16/20 09/16/20 09/16/20 Range/Units 14:10 14:45 16:24 WBC 10.72 (4.0-11.0) K/uL RBC 4.52 (4.30-5.90) M/uL Hgb 11.8 L (12.0-16.0) g/dL Hct 37.0 (36.0-46.0) % MCV 81.9 (80.0-98.0) fL MCH 26.1 L (27.0-32.0) pg MCHC 31.9 (31.0-37.0) g/dL RDW Std Deviation 41.4 (28.0-62.0) fl RDW Coeff of Ramiro 14 (11.0-15.0) % Plt Count 285 (150-400) K/uL MPV 11.30 (7.40-12.00) fL Nucleated RBC % 0.0 /100WBC Nucleated RBCs # 0 K/uL Cord ABG pH 7.329 (7.18-7.38) Cord ABG Base Excess -5 (-10--2) Cord VBG pH (7.25-7.45) Cord VBG Base Excess (-10--2) Blood Type A POSITIVE Antibody Screen NEGATIVE 09/16/20 Range/Units 16:24 WBC (4.0-11.0) K/uL RBC (4.30-5.90) M/uL Hgb (12.0-16.0) g/dL Hct (36.0-46.0) % MCV (80.0-98.0) fL MCH (27.0-32.0) pg MCHC (31.0-37.0) g/dL RDW Std Deviation (28.0-62.0) fl RDW Coeff of Ramiro (11.0-15.0) % Plt Count (150-400) K/uL MPV (7.40-12.00) fL Nucleated RBC % /100WBC Nucleated RBCs # K/uL Cord ABG pH (7.18-7.38) Cord ABG Base Excess (-10--2) Cord VBG pH 7.412 (7.25-7.45) Cord VBG Base Excess -4 (-10--2) Blood Type Antibody Screen Result Diagrams: 09/16/20 14:10 Sepsis Event Note - Evaluation Sepsis Screening Result: No Definite Risk - Focused Exam Vital Signs: Vital Signs Temp Pulse Resp BP Pulse Ox 09/16/20 21:08 36.4 C 85 14 116/67 97 09/16/20 18:00 36.8 C 104 H 20 114/68 *Q Meaningful Use (ADM) - VTE *Q VTE Criteria *Q: 0 - Problem List (1) Third trimester SNOMED Code(s): 62418792 ICD Code: Z34.93 - ENCNTR FOR SUPRVSN OF NORMAL PREG, UNSP, THIRD TRIMESTER Status: Acute Current Visit: No Problem List Initiated/Reviewed/Updated: Yes Orders Last 24hrs: Active Orders 24 hr Category Date Time Status Patient Status [ADT] Routine ADT 09/16/20 14:14 Active Patient Status [ADT] Routine ADT 09/16/20 17:52 Active May Shower [RC] ASDIRECTED Care 09/16/20 14:14 Active May Shower [RC] ASDIRECTED Care 09/16/20 17:52 Active Notify Provider [RC] PRN Care 09/16/20 14:14 Active Up ad Shital [RC] ASDIRECTED Care 09/16/20 14:14 Active Up ad Shital [RC] ASDIRECTED Care 09/16/20 17:52 Active Vital Signs [RC] PER UNIT ROUTINE Care 09/16/20 17:52 Active Regular Diet [DIET] Diet 09/16/20 Dinner Active HEMOGLOBIN/HEMATOCRIT,HH [HEME] Timed Lab 09/17/20 05:11 Ordered RPR (SYPHILIS SERO) W/ RFLX [REF] Routine Lab 09/16/20 14:10 Received Acetaminophen [Tylenol Extra Strength] Med 09/16/20 17:52 Active 1,000 mg PO Q4H PRN Acetaminophen [Tylenol Extra Strength] Med 09/16/20 17:52 Active 500 mg PO Q4H PRN Benzocaine/Menthol [Dermoplast Pain Relief 20%-0.5% Med 09/16/20 17:52 Active Wolf] 0 gm TOP ASDIRECTED PRN Butorphanol [Stadol] Med 09/16/20 14:14 Active 1 mg IVPUSH Q1H PRN Carboprost Tromethamine [Hemabate DS] Med 09/16/20 14:14 Active 250 mcg IM ASDIRECTED PRN Docusate Sodium [Colace] Med 09/16/20 17:52 Active 100 mg PO Q12H PRN Ibuprofen [Motrin] Med 09/16/20 17:52 Active 400 mg PO Q4H PRN Ibuprofen [Motrin] Med 09/16/20 17:52 Active 800 mg PO Q6H PRN Lactated Ringers [Ringers, Lactated] 1,000 ml Med 09/16/20 14:15 Active IV ASDIRECTED Lanolin [Lansinoh HPA] Med 09/16/20 17:52 Active See Dose Instructions TOP ASDIRECTED PRN Lidocaine 1% [Xylocaine 1%] Med 09/16/20 14:14 Active 50 ml INJECT ONETIME PRN Methylergonovine [Methergine] Med 09/16/20 14:14 Active 0.2 mg IM ASDIRECTED PRN Nalbuphine [Nubain] Med 09/16/20 14:14 Active 10 mg IVPUSH Q1H PRN Oxytocin/0.9 % Sodium Chloride [Oxytocin 30 Unit/500 ML Med 09/16/20 14:15 Active -NS] 30 unit in 500 ml IV TITRATE Sodium Chloride 0.9% [Normal Saline] Med 09/16/20 14:14 Active 10 ml IV ASDIRECTED PRN Sodium Chloride 0.9% [Saline Flush] Med 09/16/20 14:14 Active 10 ml FLUSH ASDIRECTED PRN Sodium Chloride 0.9% [Saline Flush] Med 09/16/20 14:14 Active 2.5 ml FLUSH ASDIRECTED PRN Tranexamic Acid [Cyklokapron] 1,000 mg Med 09/16/20 14:14 Active Sodium Chloride 0.9% [Normal Saline] 100 ml IV ONETIME Water For Irrigation,Sterile [Sterile Water for Med 09/16/20 14:14 Active Irrigation] 1,000 ml IRR ASDIRECTED PRN bisacodyL [Dulcolax] Med 09/16/20 17:52 Active 10 mg RECTAL ONETIME PRN oxyCODONE Med 09/16/20 17:52 Active 5 mg PO Q2H PRN witch Mar [Tucks] Med 09/16/20 17:52 Active 1 pad TOP ASDIRECTED PRN Assess Lochia [WOMSER] Per Unit Routine Oth 09/16/20 17:52 Ordered Assess Uterine Involution [WOMSER] Per Unit Routine Oth 09/16/20 17:52 Ordered Peripheral IV Discontinue [OM.PC] Routine Oth 09/16/20 17:52 Ordered Peripheral IV Insertion Adult [OM.PC] Routine Oth 09/16/20 14:14 Ordered Resuscitation Status Routine Resus Stat 09/16/20 14:14 Ordered Medication Orders Acetaminophen (Acetaminophen 500 Mg Tab) 500 mg PO Q4H PRN PRN Reason: Pain (mild 1-3) Acetaminophen (Acetaminophen 500 Mg Tab) 1,000 mg PO Q4H PRN PRN Reason: Pain (mild 1-3) Last Admin: 09/16/20 18:20 Dose: 1,000 mg Documented by: HANS Benzocaine/Menthol (Benzocaine/Menthol 20%-0.5% Wolf 78 Gm Cannister) 0 gm TOP ASDIRECTED PRN PRN Reason: Perineal Comfort Measure Last Admin: 09/16/20 18:18 Dose: 1 can Documented by: HANS Bisacodyl (Bisacodyl 10 Mg Supp) 10 mg RECTAL ONETIME PRN PRN Reason: Constipation Butorphanol Tartrate (Butorphanol 1 Mg/Ml Sdv) 1 mg IVPUSH Q1H PRN PRN Reason: Pain (severe 7-10) Carboprost Tromethamine (Carboprost Tromethamine 250 Mcg/1 Ml Amp) 250 mcg IM ASDIRECTED PRN PRN Reason: Post Hemorrhage Docusate Sodium (Docusate Sodium 100 Mg Cap) 100 mg PO Q12H PRN PRN Reason: Constipation Emollient Ointment (Lanolin 100% Cream 7 Gm Tube) 0 gm TOP ASDIRECTED PRN PRN Reason: Sore Nipples Oxytocin/Sodium Chloride (Oxytocin 30 Unit/500 Ml-Ns) 30 unit in 500 mls @ 999 mls/hr IV TITRATE [facility] Last Admin: 09/16/20 16:30 Dose: 999 mls/hr Documented by: HANS Tranexamic Acid 1,000 mg/ (Sodium Chloride) 110 mls @ 660 mls/hr IV ONETIME PRN PRN Reason: Bleeding Lactated Ringer's (Ringers, Lactated) 1,000 mls @ 150 mls/hr IV ASDIRECTED [facility] Last Admin: 09/16/20 15:21 Dose: 150 mls/hr Documented by: Infusion: 09/16/20 15:21 Dose: 150 mls/hr Documented by: Admin: 09/16/20 14:30 Dose: 150 mls/hr Documented by: HANS Ibuprofen (Ibuprofen 400 Mg Tab) 400 mg PO Q4H PRN PRN Reason: Pain (mild 1-3) Ibuprofen (Ibuprofen 800 Mg Tab) 800 mg PO Q6H PRN PRN Reason: Pain (mild 1-3) Last Admin: 09/16/20 18:20 Dose: 800 mg Documented by: HANS Lidocaine HCl (Lidocaine 1% 50 Ml Mdv) 50 ml INJECT ONETIME PRN PRN Reason: Laceration repair Methylergonovine Maleate (Methylergonovine 0.2 Mg/1 Ml Amp) 0.2 mg IM ASDIRECTED PRN PRN Reason: Post Hemorrhage Nalbuphine HCl (Nalbuphine 10 Mg/1 Ml Vial) 10 mg IVPUSH Q1H PRN PRN Reason: Pain (severe 7-10) Oxycodone HCl (Oxycodone 5 Mg Tab) 5 mg PO Q2H PRN PRN Reason: Pain (severe 7-10) Sodium Chloride (Sodium Chloride 0.9% 10 Ml Syringe) 10 ml FLUSH ASDIRECTED PRN PRN Reason: Keep Vein Open Sodium Chloride (Sodium Chloride 0.9% 2.5 Ml Syringe) 2.5 ml FLUSH ASDIRECTED PRN PRN Reason: Keep Vein Open Sodium Chloride (Sodium Chloride 0.9% 10 Ml Sdv) 10 ml IV ASDIRECTED PRN PRN Reason: IV Use Sterile Water (Water For Irrigation,Sterile 1,000 Ml Container) 1,000 ml IRR ASDIRECTED PRN PRN Reason: delivery Witch Mar (Witch Mar Medicated Pads 40/Jar) 1 pad TOP ASDIRECTED PRN PRN Reason: comfort care Last Admin: 09/16/20 18:19 Dose: 1 pack Documented by: HANS Assessment/Plan Comment:: A/P in HPI
--- NOTE | 2020-09-16 21:53 | PCM.DEL ---
L & D Note - General Info Date of Service: 09/16/20 Mother's Due Date: 09/16/20 - Delivery Note Labor: Spontaneous Delivery Outcome: Livebirth Infant Delivery Method: Spontaneous Vaginal Delivery-Single Presentation: Left Occiput Anterior (KRISTYN) Nuchal Cord: None Anesthesia Type: Epidural Anesthetic: Lidocaine (Xylocaine) 1% Plain Amniotic Fluid Description: Clear Episiotomy Type: None Laceration: 1st Degree, Other (right labial ) Suture type: Vicryl Suture size: 2-0 Placenta: Intact Cord: 3 Vessels Estimated Blood Loss: 300 Resuscitation Needed: No Score 1 min: 9 Score 5 min: 9 Delivery Comments (Free Text/Narrative):: Live Male delivered at 1624 , 9/9 weight 3610g - General Info Date of Service: 09/16/20 Admission Dx/Problem (Free Text): Admission Diagnosis/Problem Admission Diagnosis/Problem Early Labor - Patient Data Vitals - Most Recent: Last Vital Signs Temp 36.4 C 09/16/20 21:08 Pulse 85 09/16/20 21:08 Resp 14 09/16/20 21:08 BP 116/67 09/16/20 21:08 Pulse Ox 97 09/16/20 21:08 Weight - Most Recent: 120.202 kg I&O - Last 24 Hours: Intake & Output 09/16/20 09/16/20 09/16/20 06:59 14:59 22:59 Intake Total 2500 Output Total 450 Balance 2050 Lab Results Last 24 Hours: Laboratory Results - last 24 hr 09/16/20 09/16/20 09/16/20 Range/Units 14:10 14:45 16:24 WBC 10.72 (4.0-11.0) K/uL RBC 4.52 (4.30-5.90) M/uL Hgb 11.8 L (12.0-16.0) g/dL Hct 37.0 (36.0-46.0) % MCV 81.9 (80.0-98.0) fL MCH 26.1 L (27.0-32.0) pg MCHC 31.9 (31.0-37.0) g/dL RDW Std Deviation 41.4 (28.0-62.0) fl RDW Coeff of Ramiro 14 (11.0-15.0) % Plt Count 285 (150-400) K/uL MPV 11.30 (7.40-12.00) fL Nucleated RBC % 0.0 /100WBC Nucleated RBCs # 0 K/uL Cord ABG pH 7.329 (7.18-7.38) Cord ABG Base Excess -5 (-10--2) Cord VBG pH (7.25-7.45) Cord VBG Base Excess (-10--2) Blood Type A POSITIVE Antibody Screen NEGATIVE 09/16/20 Range/Units 16:24 WBC (4.0-11.0) K/uL RBC (4.30-5.90) M/uL Hgb (12.0-16.0) g/dL Hct (36.0-46.0) % MCV (80.0-98.0) fL MCH (27.0-32.0) pg MCHC (31.0-37.0) g/dL RDW Std Deviation (28.0-62.0) fl RDW Coeff of Ramiro (11.0-15.0) % Plt Count (150-400) K/uL MPV (7.40-12.00) fL Nucleated RBC % /100WBC Nucleated RBCs # K/uL Cord ABG pH (7.18-7.38) Cord ABG Base Excess (-10--2) Cord VBG pH 7.412 (7.25-7.45) Cord VBG Base Excess -4 (-10--2) Blood Type Antibody Screen Med Orders - Current: Current Medications Acetaminophen (Acetaminophen 500 Mg Tab) 500 mg PO Q4H PRN PRN Reason: Pain (mild 1-3) Acetaminophen (Acetaminophen 500 Mg Tab) 1,000 mg PO Q4H PRN PRN Reason: Pain (mild 1-3) Last Admin: 09/16/20 18:20 Dose: 1,000 mg Documented by: Benzocaine/Menthol (Benzocaine/Menthol 20%-0.5% Magazine 78 Gm Cannister) 0 gm TOP ASDIRECTED PRN PRN Reason: Perineal Comfort Measure Last Admin: 09/16/20 18:18 Dose: 1 can Documented by: Bisacodyl (Bisacodyl 10 Mg Supp) 10 mg RECTAL ONETIME PRN PRN Reason: Constipation Butorphanol Tartrate (Butorphanol 1 Mg/Ml Sdv) 1 mg IVPUSH Q1H PRN PRN Reason: Pain (severe 7-10) Carboprost Tromethamine (Carboprost Tromethamine 250 Mcg/1 Ml Amp) 250 mcg IM ASDIRECTED PRN PRN Reason: Post Hemorrhage Docusate Sodium (Docusate Sodium 100 Mg Cap) 100 mg PO Q12H PRN PRN Reason: Constipation Emollient Ointment (Lanolin 100% Cream 7 Gm Tube) 0 gm TOP ASDIRECTED PRN PRN Reason: Sore Nipples Oxytocin/Sodium Chloride (Oxytocin 30 Unit/500 Ml-Ns) 30 unit in 500 mls @ 999 mls/hr IV TITRATE [facility] Last Admin: 09/16/20 16:30 Dose: 999 mls/hr Documented by: Tranexamic Acid 1,000 mg/ (Sodium Chloride) 110 mls @ 660 mls/hr IV ONETIME PRN PRN Reason: Bleeding Lactated Ringer's (Ringers, Lactated) 1,000 mls @ 150 mls/hr IV ASDIRECTED [facility] Last Admin: 09/16/20 15:21 Dose: 150 mls/hr Documented by: Ibuprofen (Ibuprofen 400 Mg Tab) 400 mg PO Q4H PRN PRN Reason: Pain (mild 1-3) Ibuprofen (Ibuprofen 800 Mg Tab) 800 mg PO Q6H PRN PRN Reason: Pain (mild 1-3) Last Admin: 09/16/20 18:20 Dose: 800 mg Documented by: Lidocaine HCl (Lidocaine 1% 50 Ml Mdv) 50 ml INJECT ONETIME PRN PRN Reason: Laceration repair Methylergonovine Maleate (Methylergonovine 0.2 Mg/1 Ml Amp) 0.2 mg IM ASDIRECTED PRN PRN Reason: Post Hemorrhage Nalbuphine HCl (Nalbuphine 10 Mg/1 Ml Vial) 10 mg IVPUSH Q1H PRN PRN Reason: Pain (severe 7-10) Oxycodone HCl (Oxycodone 5 Mg Tab) 5 mg PO Q2H PRN PRN Reason: Pain (severe 7-10) Sodium Chloride (Sodium Chloride 0.9% 10 Ml Syringe) 10 ml FLUSH ASDIRECTED PRN PRN Reason: Keep Vein Open Sodium Chloride (Sodium Chloride 0.9% 2.5 Ml Syringe) 2.5 ml FLUSH ASDIRECTED PRN PRN Reason: Keep Vein Open Sodium Chloride (Sodium Chloride 0.9% 10 Ml Sdv) 10 ml IV ASDIRECTED PRN PRN Reason: IV Use Sterile Water (Water For Irrigation,Sterile 1,000 Ml Container) 1,000 ml IRR ASDIRECTED PRN PRN Reason: delivery Witch Mar (Witch Mar Medicated Pads 40/Jar) 1 pad TOP ASDIRECTED PRN PRN Reason: comfort care Last Admin: 09/16/20 18:19 Dose: 1 pack Documented by: Discontinued Medications Fentanyl (Fentanyl 100 Mcg/2 Ml Sdv) Confirm Administered Dose 200 mcg .ROUTE .STK-MED ONE Stop: 09/16/20 14:48 Fentanyl (Fentanyl 100 Mcg/2 Ml Sdv) Confirm Administered Dose 100 mcg .ROUTE .STK-MED ONE Stop: 09/16/20 16:10 Ropivacaine (Naropin 0.2%) Confirm Administered Dose 200 mls @ as directed .ROUTE .STK-MED ONE Stop: 09/16/20 14:48 Lidocaine/Epinephrine (Lidocaine 2% With Epinephrine 1:200,000 20 Ml Sdv) Confirm Administered Dose 20 ml .ROUTE .STK-MED ONE Stop: 09/16/20 16:10 Misoprostol (Misoprostol 200 Mcg Tab) 200 mcg PO ONETIME PRN PRN Reason: Post Hemorrhage - Problem List & Annotations (1) Third trimester SNOMED Code(s): 49044628 Code(s): Z34.93 - ENCNTR FOR SUPRVSN OF NORMAL PREG, UNSP, THIRD TRIMESTER Status: Acute Current Visit: No - Problem List Review Problem List Initiated/Reviewed/Updated: Yes - My Orders Last 24 Hours: My Active Orders 09/16/20 Dinner Regular Diet [DIET] 09/16/20 17:52 Patient Status [ADT] Routine May Shower [RC] ASDIRECTED Up ad Shital [RC] ASDIRECTED Vital Signs [RC] PER UNIT ROUTINE Acetaminophen [Tylenol Extra Strength] 1,000 mg PO Q4H PRN Acetaminophen [Tylenol Extra Strength] 500 mg PO Q4H PRN Benzocaine/Menthol [Dermoplast Pain Relief 20%-0.5% Magazine] 0 gm TOP ASDIRECTED PRN Docusate Sodium [Colace] 100 mg PO Q12H PRN Ibuprofen [Motrin] 400 mg PO Q4H PRN Ibuprofen [Motrin] 800 mg PO Q6H PRN Lanolin [Lansinoh HPA] See Dose Instructions TOP ASDIRECTED PRN bisacodyL [Dulcolax] 10 mg RECTAL ONETIME PRN oxyCODONE 5 mg PO Q2H PRN witch Mar [Tucks] 1 pad TOP ASDIRECTED PRN Assess Lochia [WOMSER] Per Unit Routine Assess Uterine Involution [WOMSER] Per Unit Routine Peripheral IV Discontinue [OM.PC] Routine 09/17/20 05:11 HEMOGLOBIN/HEMATOCRIT,HH [HEME] Timed - Assessment Assessment:: 30yo P2 s/p @ 40 weeks - Plan Plan:: A/P in HPI
[2020-09-17] MEDS: Ibuprofen 800 MG Tab PO PRN ×2 (01:58→09:27)
[2020-09-17] MEDS: Acetaminophen 500 MG Tab PO PRN ×3 (01:58→15:12)
--- NOTE | 2020-09-17 05:23 | PCM48HPAN ---
Post Anesthesia Note - EVALUATION WITHIN 48HRS OF ANESTHETIC Vital Signs in Normal Range: Yes Patient Participated in Evaluation: Yes Respiratory Function Stable: Yes Airway Patent: Yes Cardiovascular Function Stable: Yes Hydration Status Stable: Yes Pain Control Satisfactory: Yes Nausea and Vomiting Control Satisfactory: Yes Mental Status Recovered: Yes Vital Signs: Last Vital Signs Temp 36.4 C 09/16/20 21:08 Pulse 85 09/16/20 21:08 Resp 14 09/16/20 21:08 BP 116/67 09/16/20 21:08 Pulse Ox 97 09/16/20 21:08
--- NOTE | 2020-09-17 08:26 | OR ---
SURGEON: NILDA RAMSAY DATE OF PROCEDURE: 09/17/2020 PREOPERATIVE DIAGNOSIS: 30-year-old G2, P1-0-0-1 at 40 weeks 0 days, admitted in early labor. POSTOPERATIVE DIAGNOSIS: 30-year-old G2, P1-0-0-1 at 40 weeks 0 days, admitted in early labor. PROCEDURES: 1. Normal spontaneous vaginal delivery. 2. Repair of first-degree vaginal laceration. ESTIMATED BLOOD LOSS: 300. IV FLUIDS: Pitocin running. ANESTHESIA: Epidural. COMPLICATION: None. NOTES AND FINDING: A live male delivered at 1624. score 9 and 9. Weight is 3610 g. BRIEF HISTORY ABOUT THE PATIENT: 30-year-old G2, P1-0-0-1 at 40 weeks 0 day, who came in complaining of contractions. She was noted to be about 4 to 5 cm dilated. She was requesting epidural, which she got. She had a normal rapid labor progress. She became fully dilated. DESCRIPTION OF PROCEDURE: With the patient being fully dilated, she was encouraged to push. With good pushing effort, she delivered the head, subsequently by the anterior and posterior shoulder. The body of the was delivered. Infant was placed on maternal abdomen. Delayed cord clamping was observed. Cord blood gases were obtained. Placenta was delivered via controlled cord traction. Perineum was inspected. Noted to have a first-degree laceration, which was repaired with a 2- 0 Vicryl. Instrument and pad counts were correct x2. REJI / RADHA /[id number]
--- NOTE | 2020-09-17 08:48 | PCM.PNPP ---
- General Info Date of Service: 09/17/20 Functional Status: Reports: Pain Controlled, Tolerating Diet, Ambulating, Urinating - Review of Systems General: Reports: Fatigue. Denies: Fever, Weakness Pulmonary: Denies: Shortness of Breath Cardiovascular: Denies: Chest Pain, Palpitations, Lightheadedness Gastrointestinal: Denies: Abdominal Pain, Nausea, Vomiting Genitourinary: Denies: Flank Pain Musculoskeletal: Reports: No Symptoms Skin: Reports: No Symptoms Neurological: Reports: No Symptoms Psychiatric: Reports: No Symptoms - General Info Date of Service: 09/17/20 - Patient Data Vital Signs - Most Recent: Last Vital Signs Temp 36.3 C 09/17/20 07:30 Pulse 66 09/17/20 07:30 Resp 18 09/17/20 07:30 BP 102/64 09/17/20 07:30 Pulse Ox 95 09/17/20 07:30 Weight - Most Recent: 120.202 kg I&O - Last 24 Hours: Intake & Output 09/16/20 09/17/20 09/17/20 22:59 06:59 14:59 Intake Total 2500 Output Total 450 Balance 2050 Lab Results - Last 24 Hours: Laboratory Results - last 24 hr 09/16/20 09/16/20 09/16/20 Range/Units 14:10 14:45 16:24 WBC 10.72 (4.0-11.0) K/uL RBC 4.52 (4.30-5.90) M/uL Hgb 11.8 L (12.0-16.0) g/dL Hct 37.0 (36.0-46.0) % MCV 81.9 (80.0-98.0) fL MCH 26.1 L (27.0-32.0) pg MCHC 31.9 (31.0-37.0) g/dL RDW Std Deviation 41.4 (28.0-62.0) fl RDW Coeff of Ramiro 14 (11.0-15.0) % Plt Count 285 (150-400) K/uL MPV 11.30 (7.40-12.00) fL Nucleated RBC % 0.0 /100WBC Nucleated RBCs # 0 K/uL Cord ABG pH 7.329 (7.18-7.38) Cord ABG Base Excess -5 (-10--2) Cord VBG pH (7.25-7.45) Cord VBG Base Excess (-10--2) Blood Type A POSITIVE Antibody Screen NEGATIVE 09/16/20 09/17/20 Range/Units 16:24 04:50 WBC (4.0-11.0) K/uL RBC (4.30-5.90) M/uL Hgb 10.3 L (12.0-16.0) g/dL Hct 32.6 L (36.0-46.0) % MCV (80.0-98.0) fL MCH (27.0-32.0) pg MCHC (31.0-37.0) g/dL RDW Std Deviation (28.0-62.0) fl RDW Coeff of Ramiro (11.0-15.0) % Plt Count (150-400) K/uL MPV (7.40-12.00) fL Nucleated RBC % /100WBC Nucleated RBCs # K/uL Cord ABG pH (7.18-7.38) Cord ABG Base Excess (-10--2) Cord VBG pH 7.412 (7.25-7.45) Cord VBG Base Excess -4 (-10--2) Blood Type Antibody Screen Med Orders - Current: Current Medications Acetaminophen (Acetaminophen 500 Mg Tab) 500 mg PO Q4H PRN PRN Reason: Pain (mild 1-3) Acetaminophen (Acetaminophen 500 Mg Tab) 1,000 mg PO Q4H PRN PRN Reason: Pain (mild 1-3) Last Admin: 09/17/20 01:58 Dose: 1,000 mg Documented by: Benzocaine/Menthol (Benzocaine/Menthol 20%-0.5% Ridge 78 Gm Cannister) 0 gm TOP ASDIRECTED PRN PRN Reason: Perineal Comfort Measure Last Admin: 09/16/20 18:18 Dose: 1 can Documented by: Bisacodyl (Bisacodyl 10 Mg Supp) 10 mg RECTAL ONETIME PRN PRN Reason: Constipation Butorphanol Tartrate (Butorphanol 1 Mg/Ml Sdv) 1 mg IVPUSH Q1H PRN PRN Reason: Pain (severe 7-10) Carboprost Tromethamine (Carboprost Tromethamine 250 Mcg/1 Ml Amp) 250 mcg IM ASDIRECTED PRN PRN Reason: Post Hemorrhage Docusate Sodium (Docusate Sodium 100 Mg Cap) 100 mg PO Q12H PRN PRN Reason: Constipation Emollient Ointment (Lanolin 100% Cream 7 Gm Tube) 0 gm TOP ASDIRECTED PRN PRN Reason: Sore Nipples Oxytocin/Sodium Chloride (Oxytocin 30 Unit/500 Ml-Ns) 30 unit in 500 mls @ 999 mls/hr IV TITRATE COUNTS INCLUDE 234 BEDS AT THE [facility] Last Admin: 09/16/20 16:30 Dose: 999 mls/hr Documented by: Tranexamic Acid 1,000 mg/ (Sodium Chloride) 110 mls @ 660 mls/hr IV ONETIME PRN PRN Reason: Bleeding Lactated Ringer's (Ringers, Lactated) 1,000 mls @ 150 mls/hr IV ASDIRECTED COUNTS INCLUDE 234 BEDS AT THE [facility] Last Admin: 09/16/20 15:21 Dose: 150 mls/hr Documented by: Ibuprofen (Ibuprofen 400 Mg Tab) 400 mg PO Q4H PRN PRN Reason: Pain (mild 1-3) Ibuprofen (Ibuprofen 800 Mg Tab) 800 mg PO Q6H PRN PRN Reason: Pain (mild 1-3) Last Admin: 09/17/20 01:58 Dose: 800 mg Documented by: Lidocaine HCl (Lidocaine 1% 50 Ml Mdv) 50 ml INJECT ONETIME PRN PRN Reason: Laceration repair Methylergonovine Maleate (Methylergonovine 0.2 Mg/1 Ml Amp) 0.2 mg IM ASDIRECTED PRN PRN Reason: Post Hemorrhage Nalbuphine HCl (Nalbuphine 10 Mg/1 Ml Vial) 10 mg IVPUSH Q1H PRN PRN Reason: Pain (severe 7-10) Oxycodone HCl (Oxycodone 5 Mg Tab) 5 mg PO Q2H PRN PRN Reason: Pain (severe 7-10) Sodium Chloride (Sodium Chloride 0.9% 10 Ml Syringe) 10 ml FLUSH ASDIRECTED PRN PRN Reason: Keep Vein Open Sodium Chloride (Sodium Chloride 0.9% 2.5 Ml Syringe) 2.5 ml FLUSH ASDIRECTED PRN PRN Reason: Keep Vein Open Sodium Chloride (Sodium Chloride 0.9% 10 Ml Sdv) 10 ml IV ASDIRECTED PRN PRN Reason: IV Use Sterile Water (Water For Irrigation,Sterile 1,000 Ml Container) 1,000 ml IRR ASDIRECTED PRN PRN Reason: delivery Witch Mar (Witch Mar Medicated Pads 40/Jar) 1 pad TOP ASDIRECTED PRN PRN Reason: comfort care Last Admin: 09/16/20 18:19 Dose: 1 pack Documented by: Discontinued Medications Fentanyl (Fentanyl 100 Mcg/2 Ml Sdv) Confirm Administered Dose 200 mcg .ROUTE .STK-MED ONE Stop: 09/16/20 14:48 Fentanyl (Fentanyl 100 Mcg/2 Ml Sdv) Confirm Administered Dose 100 mcg .ROUTE .STK-MED ONE Stop: 09/16/20 16:10 Ropivacaine (Naropin 0.2%) Confirm Administered Dose 200 mls @ as directed .ROUTE .STK-MED ONE Stop: 09/16/20 14:48 Lidocaine/Epinephrine (Lidocaine 2% With Epinephrine 1:200,000 20 Ml Sdv) Confirm Administered Dose 20 ml .ROUTE .STK-MED ONE Stop: 09/16/20 16:10 Misoprostol (Misoprostol 200 Mcg Tab) 200 mcg PO ONETIME PRN PRN Reason: Post Hemorrhage - Interaction Infant Disposition, : in Room with Family Feeding: Breastfed ; Nursed Well Support Person: - Recovery Exam Fundal Tone: Firm Fundal Level: At Umbilicus Fundal Placement: Midline Lochia Amount: Scant Lochia Color: Rubra/Red Perineum Description: Intact, Minimal Bruising/Swelling Episiotomy/Laceration: None Bladder Status: Voiding Urinary Elimination: Voided - Exam General: Alert, Oriented Lungs: Normal Respiratory Effort Cardiovascular: Regular Rate, Regular Rhythm GI/Abdominal Exam: Normal Bowel Sounds, Soft Extremities: Pedal Edema (trace). No: Alexus's Sign Skin: Warm, Dry, Intact Neurological: No New Focal Deficit Psy/Mental Status: Alert, Normal Affect, Normal Mood - Problem List & Annotations (1) Vaginal delivery SNOMED Code(s): 210061661 Code(s): O80 - ENCOUNTER FOR FULL-TERM UNCOMPLICATED DELIVERY Status: Acute Current Visit: No - Problem List Review Problem List Initiated/Reviewed/Updated: Yes - My Orders Last 24 Hours: My Active Orders 09/16/20 14:10 RPR (SYPHILIS SERO) W/ RFLX [REF] Routine 09/16/20 14:14 Patient Status [ADT] Routine May Shower [RC] ASDIRECTED Notify Provider [RC] PRN Up ad Shital [RC] ASDIRECTED Butorphanol [Stadol] 1 mg IVPUSH Q1H PRN Carboprost Tromethamine [Hemabate DS] 250 mcg IM ASDIRECTED PRN Lidocaine 1% [Xylocaine 1%] 50 ml INJECT ONETIME PRN Methylergonovine [Methergine] 0.2 mg IM ASDIRECTED PRN Nalbuphine [Nubain] 10 mg IVPUSH Q1H PRN Sodium Chloride 0.9% [Normal Saline] 10 ml IV ASDIRECTED PRN Sodium Chloride 0.9% [Saline Flush] 10 ml FLUSH ASDIRECTED PRN Sodium Chloride 0.9% [Saline Flush] 2.5 ml FLUSH ASDIRECTED PRN Tranexamic Acid [Cyklokapron] 1,000 mg Sodium Chloride 0.9% [Normal Saline] 100 ml IV ONETIME Water For Irrigation,Sterile [Sterile Water for Irrigation] 1,000 ml IRR ASDIRECTED PRN Peripheral IV Insertion Adult [OM.PC] Routine Resuscitation Status Routine 09/16/20 14:15 Lactated Ringers [Ringers, Lactated] 1,000 ml IV ASDIRECTED Oxytocin/0.9 % Sodium Chloride [Oxytocin 30 Unit/500 ML-NS] 30 unit in 500 ml IV TITRATE 09/17/20 08:44 Ready for Discharge [RC] PER UNIT ROUTINE - Assessment Assessment:: PPD 1 status post - Plan Plan:: Patient is doing well overall-- going well. She would like to go home later today. She is no longer coughing, denies fatigue. Will resume SSRI for PP depression prophylaxis. Discharge to home. Discharge instructions reviewed. Follow up at [facility] 4 weeks.
[2020-09-17 16:07] VITALS: BP 105/65; PULSE 79
== END 2020-09-17 18:54 | disposition home or self-care (01) | DRG 807 ==
LOC: MW.OB 13:22 → OBSVTOIN 13:22 → MW.OB 22:22
PROVIDERS: ADMIT Obstetrics & Gynecology; ATTEND Obstetrics & Gynecology
PROC: 10E0XZZ Delivery of Products of Conception, External Approach (ICD-10-PCS; principal; 2020-09-17)
PROC: 0HQ9XZZ Repair Perineum Skin, External Approach (ICD-10-PCS; 2020-09-17)
PROC: 3E0R3BZ Introduction of Anesthetic Agent into Spinal Canal, Percutaneous Approach (ICD-10-PCS; 2020-09-17)
PROC: 00HU33Z Insertion of Infusion Device into Spinal Canal, Percutaneous Approach (ICD-10-PCS; 2020-09-17)
DX: O70.0 First degree perineal laceration during delivery (principal); Z37.0 Single live birth; Z3A.40 40 weeks gestation of pregnancy; Z86.16 Personal history of COVID-19
CPT/HCPCS: 36415; 59025; 59409; 82803; 85014; 85018; 85027; 86592; 86850; 86900; 86901; A9270-GY; J2590; J3010; J7120